=== PATIENT | female | born 1990 | race Caucasian/White ===

== ENCOUNTER → 2017-05-15 | Outpatient (CLI) | payer OTHER | LOC: LAB.R 08:00 | PROVIDERS: ATTEND Nurse Practitioner Obstetrics & Gynecology | DX: Z34.01 Encounter for supervision of normal first pregnancy, first trimester (principal) | CPT/HCPCS: 87491; 87591 ==

== ENCOUNTER 2017-06-26 16:36 | Outpatient (CLI) | payer OTHER | END 2017-06-26 16:37 | disposition home or self-care (01) | LOC: LAB 16:36 | PROVIDERS: ATTEND Registered Nurse | DX: Z36 Encounter for antenatal screening of mother (principal) ==

== ENCOUNTER 2017-07-10 17:09 | Outpatient (CLI) | payer OTHER | END 2017-07-10 17:10 | disposition home or self-care (01) | LOC: LAB 17:09 | PROVIDERS: ATTEND Registered Nurse | DX: Z36.9 Encounter for antenatal screening, unspecified (principal) ==

== ENCOUNTER → 2017-07-10 | Outpatient (CLI) | payer OTHER ==
[2017-07-10 17:39] LABS: BASOPHILS # (AUTO) 0.2 10^3/uL (0.0-0.1); BASOPHILS % (AUTO) 1.2 %; EOSINOPHILS # (AUTO) 0.2 10^3/uL (0.0-0.7); EOSINOPHILS % (AUTO) 1.7 %; HCT - HEMATOCRIT 37.7 % (37.0-47.0); HGB - HEMOGLOBIN 12.7 g/dL (12.0-16.0); LYMPHOCYTES # (AUTO) 2.4 10^3/uL (1.5-3.5); LYMPHOCYTES % (AUTO) 18.4 %; MEAN CORPUSCULAR HEMOGLOBIN 29.4 pg (27.0-31.0); MEAN CORPUSCULAR HGB CONC 33.8 g/dL (32.0-36.0); MEAN CORPUSCULAR VOLUME 87.1 fL (81.0-99.0); MEAN PLATELET VOLUME 7.7 fL (7.9-10.8); MONOCYTES # (AUTO) 0.6 10^3/uL (0.0-1.0); MONOCYTES % (AUTO) 4.8 %; NEUTROPHILS # (AUTO) 9.7 10^3/uL (1.5-6.6); NEUTROPHILS % (AUTO) 73.9 %; NUCLEATED RED BLOOD CELLS AUTO 0.1 /100WBC; RED BLOOD COUNT 4.33 10^6/uL (4.20-5.40); RED CELL DISTRIBUTION WIDTH 14.3 % (12.0-15.0); UNCORRECTED WHITE BLOOD COUNT 13.1 x10^3/uL; WHITE BLOOD COUNT 13.1 x10^3/uL (4.8-10.8)
[2017-07-10 17:58] LABS: HEMOGLOBIN A1C 0.45 g/dL
[2017-07-10 18:09] LABS: BILIRUBIN,URINE NEGATIVE (NEGATIVE)
[2017-07-16 20:21] LABS: TEST RESULT REPORT
== END ==
LOC: LAB.R 08:00
PROVIDERS: ATTEND Registered Nurse
DX: Z36.9 Encounter for antenatal screening, unspecified (principal)
CPT/HCPCS: 81001; 81599; 82947; 83036; 85025; 86762; 86780; 86850; 86900; 86901; 87340; 87389

== ENCOUNTER 2017-07-31 07:35 | Outpatient (CLI) | payer OTHER ==
--- NOTE | 2017-08-03 14:59 | Ultrasound Report ---
ANATOMIC SURVEY: 07/31/2017 COMPARISON: No comparison. INDICATION: Anatomic screen. TECHNIQUE: Real-time scanning was performed with field representatives director static images obtained. LAST MENSTRUAL PERIOD 03/15/2017 Clinical Age 19 weeks 5 days US Age 20 weeks 2 days EFW Hadlock 358 EFW% Hadlock 86% Heart Rate 144 bpm EDC 12/20/2017 US EDC 12/16/2017 BPD Hadlock 19 weeks 6 days; Mean mm 46 HC Hadlock 19 weeks 6 days; Mean mm 172 AC Hadlock 20 weeks 3 days; Mean mm 152 FL Hadlock 20 weeks 6 days; Mean mm 343 Presentation variable Placental Location anterior Cervical Length 0.85 cm Amniotic Fluid 2.6 cm FINDINGS: The right ventricular outflow tract is not well seen. IMPRESSION: RIGHT VENTRICULAR OUTFLOW TRACT NOT EVALUATED. RECOMMEND FOLLOWUP EVALUATION, FOR EXAMPLE IN 2-3 WEEKS. ALSO, MAYCOL IS SOMEWHAT LOW. FOLLOWUP EVALUATION IS ALSO RECOMMENDED. MTDD
== END 2017-07-31 07:36 | disposition home or self-care (01) ==
LOC: DI 07:35
PROVIDERS: ATTEND Registered Nurse
DX: Z36.9 Encounter for antenatal screening, unspecified (principal)
CPT/HCPCS: 76811

== ENCOUNTER 2017-08-14 14:31 | Outpatient (CLI) | payer BC ==
--- NOTE | 2017-08-15 12:53 | Ultrasound Report ---
EXAM: LIMITED OBSTETRICAL ULTRASOUND EXAM DATE: 08/14/2017 04:34 PM. CLINICAL HISTORY: anatomic survey. COMPARISON: Ultrasound 07/31/2017. TECHNIQUE: Real-time sonographic evaluation of the fetus performed by the engraver seals. Multiple repre sentative static images were saved for review. DATING: Established EGA 22 weeks 2 days with COREEN 12/16/2017 based on clinical dates. GENERAL EVALUATION Yen . Cardiac activity: 159 bpm. movement: Visualized. Presentation: Breech Placenta: Anterior position. Low lying with placental margin 1.3 cm from the internal os. Amniotic fluid: 12.7 cm, normal. MVP 3.9 cm. ANATOMY Right ventricular outflow tract is seen and appears normal. Otherwise no gross abnormality. MATERNAL STRUCTURES Uterus: Unremarkable. Cervix: Long and closed. Transabdominal length 5.1 cm. Free fluid: None. IMPRESSION: 1. Yen live intrauterine with gestational age 22 weeks 2 days based on established da aakash. 2. right ventricular outflow tract is seen and appears normal. 3. Low lying placenta with placental margin 1.3 cm from the internal os. 4. MAYCOL 12.7 cm / 3.9 cm MVP, within the normal range. 5. Other findings as noted above. [facility] Referring Provider Line: [phone] SITE ID: [id number]
== END 2017-08-14 14:32 | disposition home or self-care (01) ==
LOC: DI 14:31
PROVIDERS: ATTEND Registered Nurse
DX: O41.02X0 Oligohydramnios, second trimester, not applicable or unspecified (principal); O44.42 Low lying placenta NOS or without hemorrhage, second trimester; Z3A.22 22 weeks gestation of pregnancy
CPT/HCPCS: 76816

== ENCOUNTER 2017-10-26 09:14 | Outpatient (CLI) | payer BC ==
--- NOTE | 2017-10-27 12:15 | Ultrasound Report ---
OB FOLLOWUP: 10/26/2017 CLINICAL INDICATION: Followup low-lying placenta. COMPARISON: anatomy scan 08/14/2017, 07/31/2017. TECHNIQUE: Real-time scanning was performed with surgical device sales representative static images obtained. LAST MENSTRUAL PERIOD: -- Clinical Age: 32 weeks 1 day US Age: 33 weeks 2 days EFW Hadlock: 2056 grams EFW% Hadlock: 56% Heart Rate: 145 bpm EDC: 12/20/2017 US EDC: 12/12/2017 BPD Hadlock: 33 weeks 2 days; Mean mm 83 HC Hadlock: 33 weeks 3 days; Mean mm 301 AC Hadlock: 32 weeks 5 days; Mean mm 286 FL Hadlock: 32 weeks 5 days; Mean mm 63 Presentation: cephalic Placental Location: anterior Cervical Length: --- Amniotic Fluid: 14.4 cm FINDINGS: There is a single viable intrauterine gestation, in cephalic presentation. heart rate is 145 BPM. The placenta is anterior. Previously seen low lying placenta has resolved. Amniotic fluid volume is normal, with an MAYCOL of 14.4. By size, the fetus now measures 33 weeks 2 days (32 weeks 5 days from 07/31/2017 ultrasound). No free fluid or adnexal lesion is appreciated. IMPRESSION: SINGLE VIABLE INTRAUTERINE GESTATION, WITH EXPECTED GROWTH. RESOLUTION OF PREVIOUSLY SEEN LOW-LYING PLACENTA. TD: 10/26/2017 14:46 MTDD
== END 2017-10-26 09:15 | disposition home or self-care (01) ==
LOC: DI 09:14
PROVIDERS: ATTEND Nurse Practitioner Obstetrics & Gynecology
DX: Z36.2 Encounter for other antenatal screening follow-up (principal)
CPT/HCPCS: 76816

== ENCOUNTER 2017-11-19 10:56 | Outpatient (CLI) | payer BC | END 2017-11-19 10:57 | disposition home or self-care (01) | LOC: LAB.R 10:56 | PROVIDERS: ATTEND Registered Nurse | DX: Z36.85 Encounter for antenatal screening for Streptococcus B (principal) | CPT/HCPCS: 87081 ==

== ENCOUNTER 2017-12-04 14:59 | Outpatient (CLI) | payer BC | END 2017-12-04 15:00 | disposition home or self-care (01) | LOC: LAB 14:59 | PROVIDERS: ATTEND Nurse Practitioner Obstetrics & Gynecology | DX: Z20.828 Contact with and (suspected) exposure to other viral communicable diseases (principal); R82.99 Other abnormal findings in urine | CPT/HCPCS: 87086; 87275; 87276 ==

== ENCOUNTER 2017-12-04 15:02 | Outpatient (CLI) | payer BC | END 2017-12-04 15:03 | disposition home or self-care (01) | LOC: LAB.R 15:02 | PROVIDERS: ATTEND Nurse Practitioner Obstetrics & Gynecology | DX: R82.99 Other abnormal findings in urine (principal) | CPT/HCPCS: 87086 ==

== ENCOUNTER 2017-12-21 08:10 | Outpatient (CLI) | payer BC ==
[2017-12-21 08:24] VITALS: BP 113/74
[2017-12-21] MEDS ORDERED: hydrOXYzine PAMOATE 25 MG CAPSULE PO ONE (13:00)
== END 2017-12-21 13:20 | disposition home or self-care (01) ==
LOC: WFO 08:10 → FBP 08:11 → WFO 13:20
PROVIDERS: ATTEND Registered Nurse
DX: Z34.03 Encounter for supervision of normal first pregnancy, third trimester (principal)
CPT/HCPCS: 99213; A9270

== ENCOUNTER 2017-12-22 23:59 | Inpatient (IN) | payer BC ==
[2017-12-23] MEDS ORDERED: MORPHINE 10 MG/ML VIAL IM SCH (01:19)
--- NOTE | 2017-12-23 01:21 | HISTORY & PHYSICAL EXAMINATION ---
Admit History - Instructions [place]/Slash: -Left hand click circles element as positive or present. -Right hand click slashes element as negative or not present. - Visit Reason Visit Reason: Contractions (since 1800, unable to rest) - : 1 Parity: 0 Premature: 0 Ectopic: 0 : 0 Care: positive: [facility] Complications This : positive: None - Mother's Labs Mother's Blood Type: positive: O Mother's RH: positive: Positive GBS: positive: Group B Step Negative Rubella Status: positive: Immune Physical - Abdominal Exam Vital Signs: Temp Pulse Resp BP Pulse Ox 36.8 C 99 16 117/66 96 12/23/17 00:19 12/23/17 00:28 12/23/17 00:28 12/23/17 00:28 12/23/17 00:28 Contraction Frequency (min/apart): 3-7 Contraction Intensity: positive: Mild to moderate Uterine Resting Tone: positive: Soft - Monitoring Heart Rate Baseline: 125 Strip Review: positive: Category I - Presentation Presentation: positive: Vertex - Vaginal Exam Membranes: positive: Membranes intact Dilation (in cm): 2 Effacement (%): 80 Station: positive: -1 Cervical Position: positive: Midposition - Speculum Exam Speculum Exam Performed: positive: No Findings: negative: Gross leak - Other Notes Labor Progress Note/Additional Text: Kirstin is a 27 y/o @ 40w3d by first trimester US who presents w/ complaint of uterine contractions that are painful & unbearable x7 hours. She has made no cervical change since her previous assessment on 12/21/2017. She does not feel she can go home because she is unable to rest through the contractions. She denies LOF/VB. She reports good FM. On evaluation, her FHTs are category I w/ reactive & reassuring NST, erratic uterine contractions. PARQ morphine sulfate for therapeutic rest. Pt desires. Plan for Labor - Plan For Labor Plan for Labor: 1. 10mg Morphine Sulfate IM x1 now 2. Encouraged maternal rest 3. Reassess cervical status when pt wakes, earlier PRN
[2017-12-23] MEDS ORDERED: MORPHINE PF 10 MG/10 ML AMP ONE (02:10)
[2017-12-23] MEDS ORDERED: ONDANSETRON ODT 4 MG TABLET TL PRN (08:10)
--- NOTE | 2017-12-23 08:58 | PROVIDER PROGRESS NOTE ---
Labor Progress Note - Uterine Monitoring Uterine Monitoring Mode: positive: External toco Contraction Frequency (min/apart): q 5-7 min x 60 seconds Contraction Intensity: positive: Moderate Uterine Resting Tone: positive: Soft - Monitoring Monitor Mode: positive: External ultrasound Heart Rate Baseline: 120 Heart Rate Variability: positive: Moderate (6-25 bmp) Accelerations: positive: Present, 15x15 Decelerations: positive: None Strip Review: positive: Category I - Vaginal Exam Dilation (in cm): 4 Effacement (%): 80 Station: 0 Cervical Position: Anterior (soft) - Labor Progress Note Labor Progress Note/Additional Text: S: Kirstin was able to sleep some w/ morphine sulfate for therapeutic rest. She has awakened moderately nauseated & reports intensification of uterine contractions & associated discomfort. No LOF, +bloody show. Tonny is at the bedside & is supportive. 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 Reviewed labor physiology, pt declines d/c home to await active labor, declines intervention @ this time 2. Encouraged maternal rest followed by ambulation 3. Reassess cervical status x2 hours, earlier PRN 4. Reviewed pain management options, relief measures for early labor 5. Reviewed plan of care w/ pt, partner & RN @ bedside; all in agreement, without concerns
[2017-12-23] MEDS ORDERED: OXYTOCIN 10 UNIT/ML VIAL IM ONE (12:28)
--- NOTE | 2017-12-23 12:37 | PROVIDER PROGRESS NOTE ---
Labor Progress Note - Uterine Monitoring Uterine Monitoring Mode: positive: External toco Contraction Frequency (min/apart): 3-6 x60 seconds Contraction Intensity: positive: Moderate Uterine Resting Tone: positive: Soft - Monitoring Monitor Mode: positive: External ultrasound Heart Rate Baseline: 135 Heart Rate Variability: positive: Moderate (6-25 bmp) Accelerations: positive: Present, 15x15 Decelerations: positive: None Strip Review: positive: Category I - Vaginal Exam Dilation (in cm): 4-5 Effacement (%): 80 Station: -1 (BBOW, AROM'ed s/p PARQ for moderate CAF) Cervical Position: Anterior - Labor Progress Note Labor Progress Note/Additional Text: S: Kirstin reports increased discomfort w/ her uterine contractions, coping well. Partner @ bedside, supportive. Hoping for unmedicated delivery but would like active labor to ensue sooner rather than later as she feels tired, requesting augmentation. She has a severe needle phobia & was hoping to avoid IV insertion, would like AROM to see if it can accelerate the labor process. PARQ & pt desires. O: AAOx3, anxious gravid female VS: 98.2 HR 89 RR 18 BP 129/87 EFM BL 135bpm, +accels, no decels, mod francheska TOCO: UCs q3-6 min x60 seconds SVE: 4-5/80/-1 BBOW AROMed for moderate CAF A: 27 y/o @ 40w3d by first trimester US Progressive but slow cervical change AROM for CAF, GBS negative Adequate pain control w/o analgesia/anesthesia w/ desire for unmedicated delivery P: 1. Reviewed labor physiology & anticipatory guidance for active phase labor 2. Reviewed pain management options & relief measures for discomfort 3. Encouraged maternal ambulation & reviewed optimal maternal positioning to facilitate rotation & descent 4. Reassess cervical status x4 hours, earlier PRN
--- NOTE | 2017-12-23 18:08 | PROVIDER PROGRESS NOTE ---
Labor Progress Note - Uterine Monitoring Uterine Monitoring Mode: positive: External toco Contraction Frequency (min/apart): erratic, q 7 min Contraction Intensity: positive: Mild to moderate Uterine Resting Tone: positive: Soft - Monitoring Monitor Mode: positive: External ultrasound Heart Rate Baseline: 125bpm Heart Rate Variability: positive: Moderate (6-25 bmp) Accelerations: positive: Present, 15x15 Decelerations: positive: None Strip Review: positive: Category I - Vaginal Exam Dilation (in cm): 5 Effacement (%): 80 Station: -1 Cervical Position: Anterior - Labor Progress Note Labor Progress Note/Additional Text: S: Kirstin reports that her contraction activity has slowed some & that she is having less discomfort than she was prior to AROM. 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 Reviewed clinical scenario & options for management, including expectant management, Pitocin administration, nipple stimulation, reviewed all risks/ benefits 2. Pt elects nipple stimulation as she is trying to delay IV insertion, reviewed @ length; will pump x20 minutes, rest x20 min & reassess x4 hours, earlier PRN 3. Reviewed risks r/t ROM w/o effective contraction pattern, including risks of infection; limit SVE except as clinically indicated 4. Reviewed interventions in labor/delivery & rationale for those interventions 5. Will reassess cervical status x4 hours, earlier PRN; if no change, will initiate Pitocin infusion for augmentation of persistently dysfunctional labor pattern 6. Reviewed plan of care w/ pt, partner & RN @ bedside; all in agreement, without concerns.
[2017-12-23] MEDS ORDERED: SODIUM CHLORIDE FLUSH 0.9% 10 ML SYRINGE IVP PRN (22:34)
--- NOTE | 2017-12-23 22:41 | PROVIDER PROGRESS NOTE ---
Labor Progress Note - Uterine Monitoring Uterine Monitoring Mode: positive: External toco Contraction Frequency (min/apart): 2-10 Contraction Intensity: positive: Mild Uterine Resting Tone: positive: Soft - Monitoring Monitor Mode: positive: External ultrasound (130) Heart Rate Baseline: 130 Heart Rate Variability: positive: Moderate (6-25 bmp) Accelerations: positive: Present, 15x15 Decelerations: positive: None Strip Review: positive: Category I - Vaginal Exam Dilation (in cm): 5 Effacement (%): 80 Station: -1 Cervical Position: Anterior - Labor Progress Note Labor Progress Note/Additional Text: S: Kirstin reports some cramping discomfort, nothing consistent. Was not able to tolerate pumping very long, but reports that she had dramatic contraction activity w/ nipple stimulation. Feeling frustrated w/ lack of apparent progress. Tonny is present at the bedside & supportive O: AAOx3, NAD anxious gravid female VS T 98.4 HR 88 RR 20 BP 127/80 EFM BL 130bpm, +accels, no decels, mod francheska TOCO: UCs q 2-10 min, palp mild SVE: 5/80/-1 ongoing leakage of CAF A: 27 y/o @ 40w3d by early US, dysfunctional labor pattern, no consistency to contractions unable to tolerate nipple stimulation for endogenous oxytocin release GBS neg, ROm x10 hours, afebrile FHTs cat I Adequate pain control w/o analgesia/anesthesia P: 1. Reviewed clinical scenario & options for management 2. PARQ Pitocin, reviewed use & rationale, reviewed IV insertion in light of severe needle phobia, pt now amenable, agrees to Pitocin infusion--initiate infusion & titrate per protocol to adequate contraction pattern by tocometry 3. Reassess cervical status s/p establishment of adequate contraction pattern by tocometry, if no change, will insert IUPC to best direct Pitocin titration to effect cervical change 4. Nubain 5mg/Phenergan 25mg IVP PRN pain 5. Epidural PRN per pt request 6. Encouraged maternal rest 7. Reviewed plan of care w/ pt, partner & RN @ bedside; all in agreement, without concerns
[2017-12-23] MEDS ORDERED: SODIUM CHLORIDE FLUSH 0.9% 10 ML SYRINGE ONE (22:44)
[2017-12-23] MEDS ORDERED: LACTATED RINGERS 1,000 ML IV ONE (22:45)
[2017-12-23] MEDS ORDERED: OXYTOCIN/SODIUM CHLORIDE 500 ML IV SCH (23:00)
[2017-12-23 23:43] LABS: BASOPHILS % (AUTO) 0.2 %; EOSINOPHILS # (AUTO) 0.2 10^3/uL (0.0-0.7); EOSINOPHILS % (AUTO) 1.4 %; HGB - HEMOGLOBIN 11.3 g/dL (12.0-16.0); LYMPHOCYTES # (AUTO) 1.6 10^3/uL (1.5-3.5); LYMPHOCYTES % (AUTO) 13.9 %; MEAN CORPUSCULAR HEMOGLOBIN 26.4 pg (27.0-31.0); MEAN CORPUSCULAR HGB CONC 33.2 g/dL (32.0-36.0); MEAN CORPUSCULAR VOLUME 79.4 fL (81.0-99.0); MEAN PLATELET VOLUME 7.8 fL (7.9-10.8); MONOCYTES # (AUTO) 0.9 10^3/uL (0.0-1.0); MONOCYTES % (AUTO) 7.9 %; NEUTROPHILS # (AUTO) 9.1 10^3/uL (1.5-6.6); NEUTROPHILS % (AUTO) 76.6 %; PLT - PLATELET COUNT 461 10^3/uL (130-450); RED BLOOD COUNT 4.29 10^6/uL (4.20-5.40); RED CELL DISTRIBUTION WIDTH 16.6 % (12.0-15.0); WHITE BLOOD COUNT 11.9 x10^3/uL (4.8-10.8)
[2017-12-23] MEDS ORDERED: FLUTICASONE NASAL SPRAY NAS SCH (23:45)
[2017-12-23] MEDS ORDERED: CETIRIZINE 10 MG TABLET PO SCH (23:45)
[2017-12-24] MEDS: NALBUPHINE 20 MG/ML AMP IVP PRN ×2 (00:14→03:14)
[2017-12-24] MEDS: PROMETHAZINE INJ 25 MG in SODIUM CHLORIDE 0.9% 50 ML IV PRN ×2 (00:14→06:25)
[2017-12-24] MEDS: LACTATED RINGERS 1,000 ML IV SCH ×3 (00:19→13:34)
[2017-12-24] MEDS: fentaNYL 100 MCG/2 ML VIAL IVP PRN ×3 (06:53→09:13)
[2017-12-24] MEDS ORDERED: fentaNYL 100 MCG/2 ML VIAL ONE (06:59)
--- NOTE | 2017-12-24 09:25 | PROVIDER PROGRESS NOTE ---
Labor Progress Note - Uterine Monitoring Uterine Monitoring Mode: positive: External toco Contraction Frequency (min/apart): 2-3 on 3mU/min of Pitocin Contraction Intensity: positive: Strong Uterine Resting Tone: positive: Soft - Monitoring Monitor Mode: positive: External ultrasound Heart Rate Baseline: 140 Heart Rate Variability: positive: Moderate (6-25 bmp) Accelerations: positive: Present, 15x15 Decelerations: positive: None - Vaginal Exam Dilation (in cm): 8 Effacement (%): 100 Station: 0 - Labor Progress Note Labor Progress Note/Additional Text: S: Kirstin is doing ok. Her pain is improved w/ fentanyl IVP, but is still fairly profound. She has utilized hydrotherapy w/ some effect & she is trying diversionary activity. She is hoping to avoid epidural placement, although she is feeling more friable because of her exhaustion. She was able to sleep ~3 hours overnight. Tonny is present @ the bedside & supportive. O: AAOx3, NAD WA anxious gravid female VS: T 98.5 HR 110 RR20 BP131/73 EFM: BL 140 + accels, no decels, mod francheska TOCO: UCs q2-3 min x60-90 seconds, palpably strong; Pitocin infusing @ 3mU/min SVE: 8/100/0 A: 27 y/o @ 40w4d by early US, dysfunctional labor pattern w/ AROM & Pitocin augmentation, now in active labor w/ progressive cervical change ROM x21 hours, afebrile, GBS neg, ongoing leakage of CAF FHTs cat I Adequate pain control w/ IV opioid medication, labor support P: 1. Reviewed labor physiology & anticipatory guidance for transition phase & 2nd stage labor 2. Reviewed pain management techniques/resources 3. Continue to titrate Pitocin per protocol to maintain adequate contraction pattern by tocometry 4. Reassess cervical status x2 hours, earlier PRN 5. Reviewed optimal maternal positioning to encourage rotation & descent 6. Anticipate 7. Reviewed plan of care w/ pt, partner & RN @ bedside; all in agreement, without concerns
--- NOTE | 2017-12-24 12:13 | PROVIDER PROGRESS NOTE ---
Labor Progress Note - Uterine Monitoring Uterine Monitoring Mode: positive: External toco Contraction Frequency (min/apart): 2-4 Contraction Intensity: positive: Strong Uterine Resting Tone: positive: Soft - Monitoring Monitor Mode: positive: External ultrasound Heart Rate Baseline: 140 Heart Rate Variability: positive: Moderate (6-25 bmp) Accelerations: positive: Present, 15x15 Decelerations: positive: Variable (occasional, non-repetitive, to jeaneth in 80s w/ spontaneous return to baseline <60 seconds) Strip Review: positive: Category II (w/o evidence of acidemia) - Vaginal Exam Dilation (in cm): anterior lip Effacement (%): 100 Station: 0 ( position ANISH) Cervical Position: Anterior - Labor Progress Note Labor Progress Note/Additional Text: S: Kirstin is doing well, breathing through uterine contractions, responding well to continuous labor support, position changes. Does not desire analgesia/ anesthesia @ this time; Tonny is @ the bedside & is involved & supportive. O: AAOx3, NAD WA anxious gravid female VS: T 98.5 HR 138 RR 22 BP 139/92 EFM BL 140 + accels, +variable decels, non-repetitive, occasional, to jeaneth in 80s w/ spontaneous return to baseline <60 seconds, mod francheska TOCO: UCs q2-4 min x60-90 seconds on 3mU/min Pitocin SVE: ant lip/100/0, position ANISH; lip non-reducible A: 27 y/o @ 40w4d by early US, active labor w/ progressive cervical change Pitocin infusing @ 3mU/min, adequate contraction pattern by tocometry & cervical response GBS negative AROM x24 hours, CAF, afebrile FHTs cat II w/o evidence of acidemia Adequate pain control w/ continuous labor support, position changes, diversionary activity P: 1. Reviewed physiology of 2nd stage labor 2. Reviewed optimal maternal positioning to encourage descent, pt presently on knees in upright positioning 3. Continue to titrate Pitocin infusion per protocol to maintain adequate contraction pattern by tocometry 4. Ongoing continuous labor support 5. Anticipate 2nd stage soon 6. Reviewed plan of care w/ pt, partner & RN @ bedside; all in agreement, without concerns.
--- NOTE | 2017-12-24 13:28 | PROVIDER PROGRESS NOTE ---
Labor Progress Note - Uterine Monitoring Uterine Monitoring Mode: positive: External toco Contraction Frequency (min/apart): 3-4 Contraction Intensity: positive: Strong Uterine Resting Tone: positive: Soft - Monitoring Monitor Mode: positive: Spiral electrode Heart Rate Baseline: 140 Heart Rate Variability: positive: Moderate (6-25 bmp) Accelerations: positive: Present, 15x15 Decelerations: positive: Late (occasional, non-repetitive, to jeaneth in 110s w/ spontaneous return to baseline within 2 minutes) Strip Review: positive: Category II - Vaginal Exam Dilation (in cm): anterior lip Effacement (%): 100 Station: 0 Cervical Position: Anterior - Labor Progress Note Labor Progress Note/Additional Text: S: Kirstin is exhausted & overwhelmed that she is not yet in the 2nd stage. O: AAOx3, anxious, tearful gravid female VS: T 98.2, HR 132 RR 20 BP 111/85 EFM BL 140bpm, +accels, occasional, non-repetitive late decelerations to jeaneth in 110s w/ spontaenesou return to baseline w/in 2 minutes, mod variability; intermittent periods of sustained tachycardia ~2min precipitated placement of FSE w/o difficulty, FHTs cat II w/o evidence of acidemia w/ FSE in place, reassuring relative to external doppler FHTs TOCO: UCs q 3-4 min x60 seconds on 3mU/min of Pitocin SVE: anterior lip/100/0 position LOP A: 27 y/o @ 40w4d by early US, active labor w/ progressive cervical change now w/ persistent anterior cervical lip, non-reducible, spontaneous urge to push FHTs cat II w/o evidence of acidemia, FSE in place Pitocin infusing @ 3mU/min w/ adequate labor pattern by tocometry Inadequate pain control w/o analgesia/anesthesia GBS negative AROM x25 hours, CAF, afebrile P: 1. Dr. Johnathan MD, back-up SKIN CARE INSTRUCTOR to bedside to review FHTs, reassured @ present--no indication for urgent or emergent intervention @ this time 2. Dr. Melanie MD, anesthesia provider to bedside to place epidural for labor anesthesia 3. Once comfortable, will place IUPC to ensure adequacy of contraction activity & titrate Pitocin infusion per IUPC to maintain adequate labor pattern by MVU 4. Reviewed plan of care w/ pt, partner, RN @ bedside & Dr. Johnathan MD; all in agreement, without concerns
[2017-12-24] MEDS ORDERED: BUPIVACAINE 0.25% PF 10 ML VIAL SUBQ ONE (13:50)
[2017-12-24] MEDS ORDERED: fent/BUPIV 2 MCG/0.125% 250 ML EP ONE (14:07)
[2017-12-24] MEDS ORDERED: NALBUPHINE 20 MG/ML AMP IVP PRN (14:27)
[2017-12-24] MEDS ORDERED: ePHEDrine 50 MG/ML VIAL IVP PRN (14:27)
[2017-12-24] MEDS ORDERED: fent/BUPIV 2 MCG/0.125% 250 ML EP PRN (14:27)
[2017-12-24] MEDS ORDERED: NALOXONE 0.4 MG/ML VIAL IVP PRN (14:27)
[2017-12-24] MEDS ORDERED: diphenhydrAMINE INJ 50 MG/ML VIAL IVP PRN (14:27)
[2017-12-24] MEDS ORDERED: METOCLOPRAMIDE 10 MG/2 ML VIAL IVP PRN (14:27)
[2017-12-24] MEDS ORDERED: ONDANSETRON 4 MG/2 ML VIAL IVP PRN (14:27)
[2017-12-24] MEDS ORDERED: LACTATED RINGERS 500 ML IV ONE (14:27)
--- NOTE | 2017-12-24 14:33 | PROVIDER PROGRESS NOTE ---
Labor Progress Note - Uterine Monitoring Uterine Monitoring Mode: positive: IUPC (IUPC placed w/o incident; baseline 15mmHg, peak 65mmHg, variable intensity of contractions; Pitocin infusion d/c' ed per pt request for epidural placement) Contraction Frequency (min/apart): 6 Contraction Intensity: positive: Moderate Uterine Resting Tone: positive: Soft - Monitoring Monitor Mode: positive: Spiral electrode Heart Rate Baseline: 140 Heart Rate Variability: positive: Moderate (6-25 bmp) Accelerations: positive: Present, 15x15 Decelerations: positive: None Strip Review: positive: Category I - Vaginal Exam Dilation (in cm): anterior lip Effacement (%): 100 Station: 0 Cervical Position: Anterior - Labor Progress Note Labor Progress Note/Additional Text: S: Kirstin is comfortable w/ epidural in place; she reports she can feel pressure but no longer has discomfort w/ her uterine contractions. She is hoping to be able to sleep. Tonny is present @ the bedside, supportive. O: AAOx3, NAD [place] female VS: T 98.4 HR 112 RR 18 BP 116/65 EFM by FSE: BL 140bpm, +accels, no decels, mod francheska IUPC placed w/o difficulty: contractions q 6-8 minutes w/o Pitocin infusing (d/c 'ed per pt request during epidural placement); baseline 15mmHg, peak 65mmHg x1; MVU <100 SVE: anterior lip/100/0 A: 27 y/o @ 40w4d w/ dysfunctional labor pattern, protracted labor persistent anterior lip Inadequate contraction pattern by MVU Pitocin augmentation d/c'ed to allow epidural placement FHTs cat I GBS negative AROM x26.5 hours, afebrile, CAF Adequate pain control w/ epidural anesthesia P: 1. Resume Pitocin infusion & titrate per protocol to adequate labor by MVU 2. Reviewed optimal maternal positioning to facilitate descent 3. Place & maintain kelly catheter to facilitate descent 4. Reassess cervical status 2 hours s/ establishment of adequate labor per IUPC 5. Reviewed plan of care w/ pt, partner, RN @ bedside; all in agreement, without concerns. Dr. Johnathan MD, updated as to pt clinical status.
[2017-12-24] MEDS ORDERED: CALCIUM CARBONATE CHEW 500 MG TABLET PO PRN (15:16)
--- NOTE | 2017-12-24 16:39 | PROVIDER PROGRESS NOTE ---
Labor Progress Note - Uterine Monitoring Uterine Monitoring Mode: positive: IUPC (baseline 20mmHg, peak 80mmHg on 4mU/ min of Pitocin; MVU presently 200 x1 hour) Contraction Frequency (min/apart): 2-3 Contraction Intensity: positive: Strong Uterine Resting Tone: positive: Soft - Monitoring Monitor Mode: positive: Spiral electrode Heart Rate Baseline: 140 Heart Rate Variability: positive: Moderate (6-25 bmp) Accelerations: positive: Present, 15x15 Decelerations: positive: Late (non-repetitive to jeaneth in 100s w/ spontaneous return to baseline <60 seconds), Prolonged (>2x10 min) (isolated prolonged deceleration to jeaneth in 80s w/ return to baseline w/ maternal position change) Strip Review: positive: Category II - Vaginal Exam Dilation (in cm): anterior lip Effacement (%): 100 Station: 0 Cervical Position: Anterior - Labor Progress Note Labor Progress Note/Additional Text: S: Kirstin reports L-sided pain that is severe & comparable to the contraction she was experiencing prior to epidural placement. She is tearful & exasperated. O: AAOx3, tearful gravid female VS: T 98.4 HR 134bpm, RR 20, BP 125/57 EFM by FSE: BL 140bpm, +accels, occasional late decelerations to jeaneth in 100s w / spontaneous return to baseline <60 seconds, isolated prolonged deceleration to jeaneth in 80s w/ return to baseline w/ maternal repositioning IUPC: uterine contractions q 2-3 min, baseline 20mmHg, peak 80mmHg, MVU presently >200, x1 hr with 4mU/min of Pitocin infusing SVE: anterior lip/100/0 A: 27 y/o @ 40w4d by early US, protracted dysfunctional labor, adequate x1 hour, arrest of dilation/descent FHTs concerning, cannot continue to utilize Pitocin to encourage an additional hour of adequate contractions ROM x 29 hours, afebrile, GBS negative, CAF Inadequate pain control w/ epidural anesthesia Anterior lip x6 hours w/o further dilation/ descent P: 1. Dr. Johnathan MD, to bedside to discuss clinical scenario w/ pt, recommends primary LTCS for arrest of descent/ intolerance 2. terbutaline 0.25mg SQ administered, Pitocin infusion discontinued 3. Dr. Melanie MD, to bedside to bolus epidural in preparation for operative delivery 4. Reviewed clinical scenario and limitations on augmentation imposed by well-being w/ pt & partner, both of whom articulate full understanding; Dr. Mann to obtain consent for operative delivery
[2017-12-24] MEDS ORDERED: TERBUTALINE 1 MG/ML VIAL SUBQ ONE (16:41)
[2017-12-24] MEDS ORDERED: CITRIC ACID/SODIUM CITRATE 15 ML UDC PO ONE (16:53)
[2017-12-24] MEDS ORDERED: LACTATED RINGERS 1,000 ML IV ONE ×2 (16:57→18:05)
[2017-12-24] MEDS ORDERED: SODIUM CHLORIDE 0.9% 1,000 ML IV ONE (16:57)
[2017-12-24] MEDS ORDERED: ceFAZolin 3 GM/20 ML SYRINGE ONE (17:11)
[2017-12-24] MEDS ORDERED: ONDANSETRON 4 MG/2 ML VIAL IVP ONE (17:32)
[2017-12-24] MEDS ORDERED: ROPIVACAINE 0.5% PF 20 ML AMPULE EP ONE (17:32)
[2017-12-24] MEDS ORDERED: OXYTOCIN 10 UNIT/ML VIAL IV ONE (17:32)
[2017-12-24] MEDS ORDERED: SODIUM CHLORIDE FLUSH 0.9% 10 ML SYRINGE IVP PRN (18:39)
--- NOTE | 2017-12-24 18:51 | OPERATIVE REPORT ---
Operative Report - General Admit Date: 12/23/17 Procedure Date: 12/24/17 Planned Procedure: PLTC/S Pre-Op Diagnosis: Arrest of dilitation intolerance of labor Procedure Performed: PLC/S Post Op Diagnosis: ROP nucal cord x 1 - Procedure Note Primary Surgeon: Johnathan Secondary Surgeon: Janie Anesthesia Provider: Maicol Hess Anesthesia Technique: Epidural Pathology: Placenta IV Fluids (mL): 1,200 Estimated Blood Loss (mL): 800 Complications: None
[2017-12-24] MEDS ORDERED: LACTATED RINGERS 1,000 ML IV SCH (19:00)
[2017-12-24] MEDS: KETOROLAC 30 MG/ML VIAL IV SCH (20:31)
[2017-12-24] MEDS: ACETAMINOPHEN 500 MG TABLET PO SCH ×2 (20:32→20:41)
[2017-12-24] MEDS: FLUTICASONE NASAL SPRAY NAS SCH (21:02)
[2017-12-24] MEDS: CETIRIZINE 10 MG TABLET PO SCH (21:03)
--- NOTE | 2017-12-24 22:40 | OPERATIVE REPORT ---
DATE OF SERVICE: 12/24/2017 Physician: Zander Mann MD PREOPERATIVE DIAGNOSES 1. 40.4 week gestation. 2. Arrest of dilatation. 3. intolerance of labor. POSTOPERATIVE DIAGNOSES 1. 40.4 week gestation. 2. Arrest of dilatation. 3. intolerance of labor. 4. Right occiput posterior, nuchal cord x2. PROCEDURE PERFORMED: Primary low transverse section. SURGEON: Dr. Zander Mann PHOTOGRAPHS CURATOR: GEOVANNA Malcolm ANESTHESIA: Epidural with Dr. Maicol Navarro. ESTIMATED BLOOD LOSS: 800 mL IV FLUIDS: 1200 mL FINDINGS: Upon entering the uterine cavity, there was clear amniotic fluid. The head was noted to be in the right occiput posterior position. There was a nuchal cord x2 encountered. 's Apgars were 7 and 9. There was a hockey stick extension of the incision on the right hand side. PROCEDURE: Following adequate epidural anesthesia, the patient was prepped and draped in the usual fashion. Timeout was performed at which time a Pfannenstiel incision was accomplished using a #10 blade as well as electrocautery. This was carried down to the fascia. The fascia was incised transversely. Then using both blunt and sharp dissection, it was freed from rectus abdominis and pyramidalis. The rectus was then split along the midline. The peritoneum was entered high. Care was taken to avoid any injury to the bowel, bladder, or omentum. Bladder retractor was placed. Following this, a bladder flap was developed using Metzenbaum scissors and pickups with teeth. A low transverse uterine incision was accomplished using a #10 blade and bandage scissors and finger spread technique. The head of the was lifted up out of the pelvis, rotated occiput anterior, and then delivered. The remainder of the was delivered. Cord was doubly clamped, divided and infant was handed to the nursery team that was standing by. Placenta was spontaneously delivered. The uterus was exteriorized , wrapped in moist lap and cleansed in the internal portion with a dry lap. There was noticed an extension of the uterine incision and the right side in a hockey stick fashion. The uterus was cleansed in the internal portion. At this point, the uterine incision was closed using 0 Vicryl in a running locking suture with an imbricating layer of 0 Vicryl. At this point, there was some reinforcement of the incision on the right side with good hemostasis. The uterus was tipped forward. The cul-de-sac was cleared of any fluid or clot. The estimated blood loss was obtained at this time. The uterus was then delivered back into the abdominal cavity. The gutters were likewise irrigated. The wound was inspected for bleeding, none was noted. The peritoneum was then closed using 2-0 Vicryl. The rectus was reapproximated with 2-0 Vicryl and the incision itself was closed using PDS in a running suture. The subcutaneous tissue was closed utilizing 2-0 Vicryl. At this point, the incision was closed using 4-0 Monocryl subcuticular. A wound VAC was then placed under sterile conditions. The patient tolerated procedure well. The sponge and needle count was correct. TD: 12/24/2017 22:39 MTDD
[2017-12-24] MEDS: oxyCODONE 5 MG TABLET PO PRN (23:52)
[2017-12-25] MEDS: SODIUM CHLORIDE FLUSH 0.9% 10 ML SYRINGE IVP SCH ×3 (01:11→15:13)
[2017-12-25] MEDS: KETOROLAC 30 MG/ML VIAL IV SCH ×3 (02:18→15:13)
[2017-12-25] MEDS: ACETAMINOPHEN 500 MG TABLET PO SCH ×3 (04:32→21:05)
[2017-12-25] MEDS: oxyCODONE 5 MG TABLET PO PRN ×5 (05:05→21:27)
[2017-12-25] MEDS: SIMETHICONE CHEW 80 MG TABLET PO SCH ×4 (05:36→17:46)
--- NOTE | 2017-12-25 07:50 | PROVIDER PROGRESS NOTE ---
Subjective - General Admit Date: 12/23/17 Procedure Date: 12/24/17 Post Op Days: 1 Procedure Performed: PLTC/S - Review of Systems Wound/Incisions: positive: Dressing dry and intact General: positive: No symptoms (Pain 4/10, Passing flatus.) Objective - Patient Data Reviewed Vital Signs: Yes Vital Signs: Vital Signs x48h Temp Pulse Resp BP Pulse Ox 12/25/17 06:32 36.7 C 82 18 113/54 L 97 12/25/17 02:14 36.6 C 102 H 18 115/58 L 96 12/24/17 23:54 37.1 C Weight: Weight 12/23/17 12/24/17 12/25/17 23:59 23:59 23:59 Weight (kg) 101.151 kg Intake & Output: Intake and Output Totals x24h 12/23/17 12/24/17 12/25/17 23:59 23:59 23:59 Intake Total 1674.883 Output Total 475 360 Balance 1199.883 -360 - Lab Results Lab Results: 12/23/17 22:55 - Current Medications Current Medications: Current Medications Generic Name Dose Route Start Last Admin Trade Name Freq PRN Reason Stop Dose Admin Acetaminophen 1,000 mg 12/24/17 19:00 12/25/17 04:32 Tylenol PO 1,000 mg Q8H DEEPAK Administration Calcium Carbonate/Glycine 500 mg 12/24/17 15:16 12/24/17 15:32 Tums PO 500 mg BID PRN Administration Heartburn Cetirizine HCl 10 mg 12/24/17 21:00 12/24/17 21:03 Zyrtec PO 10 mg QPM DEEPAK Administration Fluticasone Propionate 0 sprays 12/24/17 21:00 12/24/17 21:02 Flonase DARIEL 2 sprays QPM DEEPAK Administration Ketorolac Tromethamine 30 mg 12/24/17 20:00 12/25/17 02:18 Toradol Inj IV 12/25/17 14:01 30 mg Q6H DEEPAK Administration Oxycodone HCl 5 mg 12/24/17 18:39 12/25/17 05:05 Roxicodone PO 5 mg Q4HR PRN Administration PAIN Simethicone 80 mg 12/24/17 22:00 03/23/18 05:36 Mylicon PO Not Given TID [facility] Sodium Chloride 10 ml 12/25/17 01:00 12/25/17 01:11 Normal Saline Flush 0.9% IVP Not Given 0100,0900,1700 [facility] - Physical Exam Wound/Incisions: positive: Dressing dry and intact General Appearance: positive: No acute distress, Alert Respiratory: positive: Chest non-tender, No respiratory distress, Breath sounds nml Cardiovascular: positive: Regular rate & rhythm, No murmur Abdomen: positive: Non-tender, No organomegaly, Nml bowel sounds Skin: positive: Color nml, No rash, Warm Extremities: positive: Non-tender, Full ROM, Nml appearance. negative: Calf tenderness, Ton's sign/cords Neurologic/Psychiatric: positive: Oriented x3 Impression/Plan - Problem List Problem List: POD # 1 progressing well. Slow return form epidural. Will remove kelly and ambulate when lower extremity full return.
[2017-12-25] MEDS: DOCUSATE SODIUM 100 MG CAPSULE PO SCH (21:05)
[2017-12-25] MEDS: IBUPROFEN 800 MG TABLET PO SCH (21:06)
[2017-12-25] MEDS: FLUTICASONE NASAL SPRAY NAS SCH (21:27)
[2017-12-25] MEDS: CETIRIZINE 10 MG TABLET PO SCH (21:27)
[2017-12-26] MEDS: IBUPROFEN 800 MG TABLET PO SCH ×4 (01:59→20:39)
[2017-12-26] MEDS: oxyCODONE 5 MG TABLET PO PRN ×5 (01:59→22:39)
[2017-12-26] MEDS: ACETAMINOPHEN 500 MG TABLET PO SCH ×3 (05:02→22:39)
[2017-12-26] MEDS: DOCUSATE SODIUM 100 MG CAPSULE PO SCH ×2 (08:10→20:39)
[2017-12-26] MEDS: SIMETHICONE CHEW 80 MG TABLET PO SCH ×3 (10:34→22:39)
--- NOTE | 2017-12-26 15:16 | Discharge Plan ---
Discharge Plan Disposition: Home, Self Care Condition: Good Prescriptions: oxyCODONE [Roxicodone] 5 mg PO Q4HR PRN #30 tablet PRN Reason: Pain Ibuprofen [Motrin] 800 mg PO Q6H #30 tablet Diet: Regular Activity Restrictions: NO LIFTING >10#, PELVIC REST X6 WEEKS Shower Restrictions: No Driving Restrictions: No Weight Bearing: Full Weight Instruction Topics: Breastfeed How To, Jaundice Signs Inf, , , Exercises Kegel Additional Instructions or Follow Up instructions: F/U X1 WEEK W/ DR. MANN FOR WOUND VAC REMOVAL No Smoking: If you smoke, Please STOP! Call for help. Follow-up with: Zander Mann MD [Provider Admit Priv/Credential] -
--- NOTE | 2017-12-26 15:22 | DISCHARGE SUMMARY ---
"Discharge Summary Admit Date: 12/23/17 Discharge Date: 12/26/17 Discharging Provider: MARTIN Code Status: Attempt Resuscitation Condition at Discharge: Good Discharge Disposition: 01 Home, Self Care Discharge Facility Name: [facility] - DIAGNOSES Admission Diagnoses: DYSFUNCTIONAL LABOR Discharge Diagnoses with Status of Each Condition: ARREST OF DESCENT INTOLERANCE OF LABOR PRIMARY LTCS - HPI History of Present Illness: EZRA CHEN IS A 27 Y/O [id number] WHO WAS ADMITTED W/ DYSFUNCTIONAL PRODROMAL LABOR & SLOW CERVICAL CHANGE. SHE UNDERWENT AROM AUGMENTATION W/ MINIMAL EFFECT & THEN RECEIVED PITOCIN INFUSION TO MAX INFUSION OF 3Mu/MIN TO PROGRESS TO ANTERIOR CERVICAL LIP. SHE DID NOT MAKE FURTHER PROGRESS. SHE RECEIVED AN EPIDURAL FOR ANESTHESIA & HAD IUPC PLACED TO DIRECT TITRATION OF PITOCIN. FHTS BECAME CONCERNING W/ PITOCIN INFUSION, SUCH THAT INFANT WAS HAVING DECELERATIONS W/ PROGRESSIVE STEEPNESS TO REBECCA IN 60S. PITOCIN INFUSION WAS DISCONTINUED & TERBUTALINE WAS ADMINISTERED. HER WAS DELIVERED VIA URGENT PRIMARY LTCS W/O COMPLICATION. - CONSULTS | PROCEDURES Consultations: ANESTHESIA, OBSTETRICS Procedures: THERAPEUTIC REST W/ MORPHINE SULFATE IM AROM FOR AUGMENTATION PITOCIN INFUSION FOR AUGMENTATION EPIDURAL PLACEMENT LTCS - HOSPITAL COURSE Hospital Course: , EZRA IS AMBULATING & VOIDING W/O DIFFICULTY. SHE IS PASSING FLATUS & TOLERATING PO INTAKE. HER PAIN IS WELL-CONTROLLED W/ OPIOID ANALGESIA. SHE IS WELL W/ EXCELLENT LATCH . SHE REPORTS MINIMAL LOCHIA RUBRA. SHE IS NOT PLANNING TO RETURN TO WORK. HER PARTNER WILL HAVE 2 WEEKS OFF TO ASSIST HER AT HOME & SHE REPORTS ADDITIONAL EXCELLENT SOCIAL SUPPORT. SHE IS ABLE TO FULLY ARTICULATE PP WARNING S/SX, INCLUDING PP DEPRESSION S/SX, AND PP AFTERCARE INSTRUCTIONS. SHE IS PLANNING TO F/U X1 WEEK FOR WOUND VAC REMOVAL & WOULD LIKE TO SEE DR. CARRILLO FOR THIS APPOINTMENT. SHE PLANS 3 WEEK PP F/U W/ ME & 8 WEEK ANNUAL VISIT. SHE HAS EMERGENCY CONTACT INFORMATION & IS READY TO LEAVE THE HOSPITAL. - ALLERGIES Allergies/Adverse Reactions: Allergies Allergy/AdvReac Type Severity Reaction Status Date / Time No Known Drug Allergies Allergy Verified 12/23/17 01:47 - MEDICATIONS Home Medications: Ambulatory Orders Medication Instructions Recorded Confirmed Calcium Carbonate [Tums (Calcium 500 mg PO BID PRN tablet 12/26/17 Carbonate 500mg)] Cetirizine [ZyrTEC] 10 mg PO QPM tablet 12/26/17 Fluticasone [Flonase] 0 sprays DARIEL QPM bottle 12/26/17 Ibuprofen [Motrin] 800 mg PO Q6H #30 tablet 12/26/17 oxyCODONE [Roxicodone] 5 mg PO Q4HR PRN #30 tablet 12/26/17 - PHYSICAL EXAM AT DISCHARGE General Appearance: positive: No acute distress, Alert Eyes Bilateral: positive: Normal inspection Respiratory: positive: Chest non-tender, No respiratory distress, Breath sounds nml Cardiovascular: positive: Regular rate & rhythm, No murmur Abdomen: positive: Non-tender, No distention, Other (FFU-1; PFANNENSTIEL INCISION W/ PREVENA WOUND VAC INTACT, DRESSING C/D/I, NO CIRCUMFERENTIAL EXUDATE , NO ERYTHEMA) Back: positive: Nml inspection Skin: positive: Color nml, No rash, Warm, Dry Extremities: positive: Non-tender, Full ROM, Nml appearance, No pedal edema. negative: Calf tenderness Neurologic/Psychiatric: positive: Oriented x3, CN's nml (2-12), Motor nml, Sensation nml, Mood/affect nml Physical Exam Other/Comments: BREASTS B/L S, NT; NIPPLES B/L INTACT & EVERTED, SLIGHT ECCHYMOSIS, HYDROGEL PADS & LANOLIN IN USE - LABS Result Diagrams: 12/23/17 22:55 - FOLLOW UP Follow Up: X1 WEEK W/ DR. LORENA MD, EARLIER PRN [id number] W/ CAL SALAZAR CNM, EARLIER PRN - TIME SPENT Time Spent in Discharge (Minutes): 30"
[2017-12-26] MEDS: CETIRIZINE 10 MG TABLET PO SCH (20:39)
[2017-12-26] MEDS: FLUTICASONE NASAL SPRAY NAS SCH (20:40)
[2017-12-27] MEDS: IBUPROFEN 800 MG TABLET PO SCH ×2 (02:54→09:10)
[2017-12-27] MEDS: oxyCODONE 5 MG TABLET PO PRN ×3 (02:54→11:51)
[2017-12-27] MEDS: ACETAMINOPHEN 500 MG TABLET PO SCH (07:25)
[2017-12-27] MEDS: SIMETHICONE CHEW 80 MG TABLET PO SCH (07:25)
[2017-12-27] MEDS: DOCUSATE SODIUM 100 MG CAPSULE PO SCH (09:10)
[2017-12-27 11:51] VITALS: BP 124/87
--- NOTE | 2017-12-27 12:33 | Labor Flowsheet ---
Labor Flowsheet Datetime Report Generated by CPN: 12/27/2017 12:34 Datetime: 12/27/2017 11:56 VITAL SIGNS NBP Sys/Elba/Mean (mmHg): 124 : 87 : 95 Pulse: 84 LaborFlag: Labor Datetime: 12/24/2017 22:04 SpO2 (%): 96 Datetime: 12/24/2017 17:05 ASSESSMENT A Monitor Mode: Doppler FHR Baseline Rate : 130 Datetime: 12/24/2017 16:56 Patient Care Comments: To OR Datetime: 12/24/2017 16:55 UTERINE ACTIVITY Monitor Mode: Internal Frequency (min): 4.5-6.5 Duration (sec): 70-80 Pattern: Normal: <= 5 Contractions in 10 Minutes Resting Tone IUP (mmHg): 15 Intensity IUP (mmHg): 40-70 Datetime: 12/24/2017 16:34 Tocolytics: Terbutaline 0.25mg Subcutaneous Medication Comments: Given per Milagrosa verbal order Datetime: 12/24/2017 16:30 Variability: Minimal - Undetectable to <=5 bpm Accelerations: 15X15 Decelerations: Early; Prolonged (Annotations: Prolonged decel @ 1617 when changing pt position from R lat to L lat. Decel lasting 180secs, down to 90s. Improved when pt position changed back to R lat. Provider to room shortly after decel. Strip reviewed.) Actions for Decelerations: Side to Side; Provider Notified Category: Category II Datetime: 12/24/2017 16:24 Communication Comments: Milagrosa _ Giem discussing c/s with pt. Datetime: 12/24/2017 16:23 COMMUNICATION Communication: Provider at Bedside Datetime: 12/24/2017 16:20 Patient Position/Activity: Right Tilt; Semi-Fowlers Datetime: 12/24/2017 16:10 Anesthesia Comments: requested redose Datetime: 12/24/2017 16:05 VAGINAL EXAM Dilatation (cm): 9.5 Exam by: Lianet Willoughby, RN Datetime: 12/24/2017 16:00 Respirations: 18 MEDICATIONS Pitocin (milliunits): Increased to @ (Annotations: 5) Datetime: 12/24/2017 15:31 I/O Interventions: Jackson Cath Inserted Datetime: 12/24/2017 15:30 Stage of : Labor Datetime: 12/24/2017 15:08 Temperature (C): 37.3 Datetime: 12/24/2017 14:14 Monitor Interventions for UA: IUPC Inserted Datetime: 12/24/2017 14:00 Quality: Strong Resting Tone (Palpate): Relaxed Datetime: 12/24/2017 13:46 Epidural Procedure: Loading Dose Datetime: 12/24/2017 13:27 PROCEDURE TIME OUT Procedure Verify: Correct Patient Identity; Correct Side and Site are Marked; Accurate Procedure Co nsent Form; Agreement on Procedure to be Done; Correct Patient Position; Relevant Images and Results are Properly Labeled and Displayed; Addressed Need to Administer Antibiotics or Fluids for Irrigation ; Safety Precautions Based on Patient History or Medication Use ANESTHESIA Epidural Positioning: Sitting Datetime: 12/24/2017 13:02 Monitor Interventions for FHR: FSE Applied Comments: IV bolus started @ 999 Datetime: 12/24/2017 12:30 Contraction Comments: difficult to monitor ctx d/t pt position hands/knees Datetime: 12/24/2017 11:52 Provider Reviewed Strip: Yes Datetime: 12/24/2017 10:37 Effacement (%): 100 Station: 0 Datetime: 12/24/2017 09:14 Analgesics/Sedatives: Fentanyl (mcg) @ 100 Datetime: 12/24/2017 08:32 Hygiene: Shower Datetime: 12/24/2017 07:00 Oxygen Method: Room Air Datetime: 12/24/2017 06:55 PAIN Pain Scale: 8 Pain Presence: Intermittent Pain Type: Contraction Pain Location: Abdomen; Perineum Pain Relief Measures: Pain Medication Given Comfort Measures: Breathing/Relaxation; Family Support Datetime: 12/24/2017 06:15 Temperature Route: Oral Datetime: 12/24/2017 05:18 Vaginal Bleeding: None Cervix, Consistency: Soft Cervix, Position: Midposition Datetime: 12/24/2017 02:30 FHR Baseline Changes: No Baseline Change Datetime: 12/24/2017 00:34 PATIENT CARE IV/Blood Work: IV Infusing per Order; IV Bag Number @ 1 Datetime: 12/23/2017 23:21 Provider Notified (Name): M Milagrosa, CNM, CAB SUPERVISOR Datetime: 12/23/2017 22:25 Vaginal Exam Comments: "unchanged" Datetime: 12/23/2017 22:16 TEACHING Instructional Method: Verbal Plan of Care: Plan of Care Discussed Teaching Comments: Patient notified that CNM is on her way. CNM planning to check cervix. Patient m carrington aware that a new plan to stimulate contraction may be needed. Datetime: 12/23/2017 22:13 Notification Reason: Status Update; Uterine Activity Nurse Giving Report: A Madison RN Datetime: 12/23/2017 21:50 Pain Coping: Talking Through Contractions; Breathing Through Contractions Pain Assessment Comments: "Uncomfortable" with the moderate contractions MATERNAL ASSESSMENT Level of Consciousness: Fully Conscious Headache: Denies Breath Sounds, Left: Clear and Equal Breath Sounds, Right: Clear and Equal Nausea/Vomiting: Denies RUQ Epigastric Pain: Denies Datetime: 12/23/2017 12:22 Membrane Status: Ruptured Membranes Rupture Method: Artificial Amniotic Fluid Color: Clear Amniotic Fluid Amount: Moderate
== END 2017-12-27 12:15 | disposition home or self-care (01) | DRG 766 ==
LOC: WFO 23:59 → FBP 12-23 → WFO 12-23 01:16 → FBP 12-23 01:18 → OBSVTOIN 12-23 12:27 → EEVIPCON 12-23 12:27
PROVIDERS: ADMIT Obstetrics & Gynecology; ATTEND Registered Nurse
PROC: 10907ZC Drainage of Amniotic Fluid, Therapeutic from Products of Conception, Via Natural or Artificial Opening (ICD-10-PCS; 2017-12-23)
PROC: 10D00Z1 Extraction of Products of Conception, Low, Open Approach (ICD-10-PCS; principal; 2017-12-24 16:45)
DX: O62.0 Primary inadequate contractions (principal); O64.0XX0 Obstructed labor due to incomplete rotation of fetal head, not applicable or unspecified; O76 Abnormality in fetal heart rate and rhythm complicating labor and delivery; O69.9XX0 Labor and delivery complicated by cord complication, unspecified, not applicable or unspecified; Z3A.40 40 weeks gestation of pregnancy; Z37.0 Single live birth
CPT/HCPCS: 82803; 85025; 86850; 86900; 86901; 96372; 99213

== ENCOUNTER 2019-12-16 11:14 | Outpatient (CLI) | payer BC | END 2019-12-16 11:15 | disposition critical access hospital (66) | LOC: EMS 11:14 | PROVIDERS: ATTEND Surgery | DX: R55 Syncope and collapse (principal) | CPT/HCPCS: A0425; A0429 ==

== ENCOUNTER 2019-12-16 11:31 | Emergency (ER) | payer BC ==
[2019-12-16 12:04] LABS: BASOPHILS % (AUTO) 0.3 %; EOSINOPHILS # (AUTO) 0.2 10^3/uL (0.0-0.7); EOSINOPHILS % (AUTO) 1.8 %; HGB - HEMOGLOBIN 12.8 g/dL (12.0-16.0); LYMPHOCYTES # (AUTO) 1.6 10^3/uL (1.5-3.5); LYMPHOCYTES % (AUTO) 13.8 %; MEAN CORPUSCULAR HGB CONC 33.2 g/dL (32.0-36.0); MEAN CORPUSCULAR VOLUME 87.3 fL (81.0-99.0); MEAN PLATELET VOLUME 9.4 fL (7.9-10.8); MONOCYTES # (AUTO) 0.7 10^3/uL (0.0-1.0); MONOCYTES % (AUTO) 5.9 %; NEUTROPHILS # (AUTO) 9.1 10^3/uL (1.5-6.6); NEUTROPHILS % (AUTO) 77.5 %; PLT - PLATELET COUNT 381 10^3/uL (130-450); RED BLOOD COUNT 4.41 10^6/uL (4.20-5.40); RED CELL DISTRIBUTION WIDTH 13.4 % (12.0-15.0); WHITE BLOOD COUNT 11.7 x10^3/uL (4.8-10.8)
[2019-12-16 12:25] LABS: ALBUMIN 3.2 g/dL (3.2-5.5); ALBUMIN/GLOBULIN RATIO 0.9 (1.0-2.2); BILIRUBIN,TOTAL 0.3 mg/dL (0.2-1.0); CALCIUM 8.8 mg/dL (8.5-10.3); CREATININE 0.7 mg/dL (0.4-1.0); TOTAL PROTEIN 6.9 g/dL (6.7-8.2)
--- NOTE | 2019-12-16 12:54 | ED Physician Documentation ---
History of Present Illness - Stated complaint Stated Complaint: SZ - Chief complaint Chief Complaint: Neuro - History obtained from History obtained from: Patient - History of Present Illness Timing: Today Pain level max: 0 Pain level now: 0 - Additonal information Additional information: 29-year-old female presents to the emergency department stating that she is 17 weeks , was standing and a line today at a store when she felt lightheaded, dizzy and passed out. She states she has had syncopal events in the past, especially when . Nothing makes it better or worse. No fevers. No abdominal pain. No vaginal bleeding. No discharge. No problems with this . No seizure activity. No tongue biting. No injuries. A bystander caught her and laid her down on the ground. She is asymptomatic currently Review of Systems Ten Systems: 10 systems reviewed and negative Constitutional: denies: Fever, Chills Ears: denies: Ear pain Nose: denies: Rhinorrhea / runny nose, Congestion Respiratory: denies: Cough GI: denies: Nausea, Vomiting, Diarrhea Skin: denies: Rash Musculoskeletal: denies: Neck pain, Back pain Neurologic: denies: Headache PD PAST MEDICAL HISTORY - Past Medical History Past Medical History: No - Present Medications Home Medications: Ambulatory Orders Medication Instructions Recorded Confirmed Calcium Carbonate [Tums (Calcium 500 mg PO BID PRN tablet 12/26/17 Carbonate 500mg)] Cetirizine [ZyrTEC] 10 mg PO QPM tablet 12/26/17 Fluticasone [Flonase] 0 sprays DARIEL QPM bottle 12/26/17 Ibuprofen [Motrin] 800 mg PO Q6H #30 tablet 12/26/17 oxyCODONE [Roxicodone] 5 mg PO Q4HR PRN #30 tablet 12/26/17 - Allergies Allergies/Adverse Reactions: Allergies Allergy/AdvReac Type Severity Reaction Status Date / Time No Known Drug Allergies Allergy Verified 12/16/19 11:41 - Social History Does the pt smoke?: No Smoking Status: Never smoker PD ED PE NORMAL - Vitals Vital signs reviewed: Yes - General General: Alert and oriented X 3, No acute distress, Well developed/nourished - HEENT HEENT: Atraumatic, PERRL, Ears normal, Moist mucous membranes, Pharynx benign - Neck Neck: Supple, no meningeal sign, No bony TTP, No JVD, No bruit - Cardiac Cardiac: RRR, No murmur, Strong equal pulses - Respiratory Respiratory: No respiratory distress, Clear bilaterally - Abdomen Abdomen: Soft, Non tender, Non distended - Back Back: No CVA TTP, No spinal TTP - Derm Derm: Warm and dry, No rash - Extremities Extremities: No edema - Neuro Neuro: Alert and oriented X 3, transfer station attendant 2-12 intact, No motor deficit, No sensory deficit, Normal speech Eye Opening: Spontaneous Motor: Obeys Commands Verbal: Oriented GCS Score: 15 - Psych Psych: Normal mood, Normal affect Results - Vitals Vitals: Vital Signs - 24 hr 12/16/19 12/16/19 12/16/19 11:37 12:27 12:54 Temperature 35.1 C L 36.7 C Heart Rate 108 H 102 H 88 Respiratory 16 18 18 Rate Blood Pressure 150/139 H 119/86 H 107/95 H O2 Saturation 100 99 97 Oxygen O2 Source Room air - EKG (time done) 1226 Rate: Rate (enter#) (91) Rhythm: NSR [place]: Normal Intervals: Normal AR QRS: Normal Ischemia: Normal ST segments - Labs Labs: Laboratory Tests 12/16/19 12/16/19 12/16/19 11:58 11:58 11:58 WBC 11.7 H RBC 4.41 Hgb 12.8 Hct 38.5 MCV 87.3 MCH 29.0 MCHC 33.2 RDW 13.4 Plt Count 381 MPV 9.4 Neut # (Auto) 9.1 H Lymph # (Auto) 1.6 [place] # (Auto) 0.7 Eos # (Auto) 0.2 Baso # (Auto) 0.0 Absolute Nucleated RBC 0.00 Nucleated RBC % 0.0 Sodium 133 L Potassium 3.9 Chloride 104 Carbon Dioxide 20 L Anion Gap 9.0 BUN 8 Creatinine 0.7 Estimated GFR (MDRD) 99 Glucose 96 Calcium 8.8 Total Bilirubin 0.3 AST 18 ALT 14 Alkaline Phosphatase 58 Troponin I High Sens < 2.3 L Total Protein 6.9 Albumin 3.2 Globulin 3.7 Albumin/Globulin Ratio 0.9 L Lipase 29 Urine Color Urine Clarity Urine pH Ur Specific [place] Urine Protein Urine Glucose (UA) Urine Ketones Urine Occult Blood Urine Nitrite Urine Bilirubin Urine Urobilinogen Ur Leukocyte Esterase Ur Microscopic Review Urine Culture Comments 12/16/19 12:56 WBC RBC Hgb Hct MCV MCH MCHC RDW Plt Count MPV Neut # (Auto) Lymph # (Auto) [place] # (Auto) Eos # (Auto) Baso # (Auto) Absolute Nucleated RBC Nucleated RBC % Sodium Potassium Chloride Carbon Dioxide Anion Gap BUN Creatinine Estimated GFR (MDRD) Glucose Calcium Total Bilirubin AST ALT Alkaline Phosphatase Troponin I High Sens Total Protein Albumin Globulin Albumin/Globulin Ratio Lipase Urine Color YELLOW Urine Clarity CLEAR Urine pH 7.0 Ur Specific [place] 1.010 Urine Protein NEGATIVE Urine Glucose (UA) NEGATIVE Urine Ketones NEGATIVE Urine Occult Blood NEGATIVE Urine Nitrite NEGATIVE Urine Bilirubin NEGATIVE Urine Urobilinogen 0.2 (NORMAL) Ur Leukocyte Esterase NEGATIVE Ur Microscopic Review NOT INDICATED Urine Culture Comments NOT INDICATED PD MEDICAL DECISION MAKING - ED course Complexity details: reviewed results, re-evaluated patient, considered differential, d/w patient ED course: heart tones of 154 bpm. Patient is well-appearing, nontoxic. Afebrile. No issues with the . Appears to have had a syncopal event. Given IV fluids and feels better. No significant lab abnormalities. This is happened to her several times in the past. We will have her follow-up with her doctor for further care. Patient counseled regarding signs and symptoms for which I believe and urgent re-evaluation would be necessary. Patient with good understanding of and agreement to plan and is comfortable going home at this time This document was made in part using voice recognition software. While efforts are made to proofread this document, sound alike and grammatical errors may occur. No arrhythmias on telemetry monitoring Departure - Departure Disposition: 01 Home, Self Care Clinical Impression: Syncope Qualifiers: Syncope type: unspecified Qualified Code(s): R55 - Syncope and collapse Condition: Good Instructions: ED Syncope Vasovagal Follow-Up: Your,doctor in 1 week [Other] Comments: Drink plenty of fluids. Return if you worsen. Follow-up with your doctor for further care. Your testing does not reveal any acute abnormalities today.
[2019-12-16 13:22] LABS: BILIRUBIN,URINE NEGATIVE (NEGATIVE); GLUCOSE, URINE (UA) NEGATIVE (NEGATIVE); KETONES,URINE (UA) NEGATIVE (NEGATIVE); LEUKOCYTE ESTERASE, URINE NEGATIVE (NEGATIVE); NITRITE,URINE NEGATIVE (NEGATIVE); OCCULT BLOOD,URINE NEGATIVE (NEGATIVE); PROTEIN,URINE NEGATIVE (NEGATIVE); UROBILINOGEN,URINE 0.2 (NORMAL) E.U./dL (NORMAL)
[2019-12-16] MEDS ORDERED: SODIUM CHLORIDE 0.9% 1,000 ML IV ONE (13:23)
[2019-12-16 13:24] LABS: CLARITY,URINE CLEAR (CLEAR)
[2019-12-16 13:53] VITALS: BP 109/85
== END 2019-12-16 14:29 | disposition home or self-care (01) ==
LOC: EDUNIT# → ED 11:31
DX: O99.89 Other specified diseases and conditions complicating pregnancy, childbirth and the puerperium (principal); R55 Syncope and collapse; Z3A.17 17 weeks gestation of pregnancy
CPT/HCPCS: 36415; 80053; 81001; 81003; 83690; 84484; 85025; 87086; 93005; 96360; 99284